=== PATIENT | female | born 1935 | race Caucasian/White ===

== ENCOUNTER 2019-12-16 12:31 | Emergency (ER) | payer OTHER ==
[~2019-12-16] VITALS: Ht 165.1 cm; Wt 55.3 kg
[~2019-12-16 12:31] MED LIST: AMARYL4 MG PO; ASPIRIN81 M2 PO; ATORVASTATIN CA40 MG PO; AVAPRO75 MG PO; BACTRIM DS TAB1 EAC1 PO; BETIMOL5 ML OPHTHALMIC; BREO ELLIPTA 11 EACH INH; COREG6.25 MG PO; CRANBERRY 12,61 EACH PO; ELIQUIS5 MG PO; ERY-TAB333 MG PO; ERYTHROMYCIN500 MG PO; ESTROVEN 155 M155 MG; FAMCICLOVIR250 MG PO; GUAIFENESIN1200 MG PO; IMDUR 60 MG TAB60 M1 PO; LIDODERM 5%1 PATC1 TRANSDERM; LUMIGAN2.5 M1 OP; LUMIGAN2.5 M1 OPHTHALMIC; MEGA MULTI FOR1 EACH; METFORMIN HCL1000 MG PO; NITROGLYCERIN0.4 MG SUBLING; OMEGA-31000 M1 PO; OMEPRAZOLE 20 M20 M1 PO; OXYCODONE HCL10 MG PO; PERCOCET PO; PLAVIX 75 MG TA75 M1 PO; PREDNISONE 20 M20 M1 PO; PRILOSEC 20 MG20 MG PO; Q-SORB CO Q-10200 MG; SINGULAIR 10 MG10 M1 PO; TYLENOL325 MG PO; VALIUM5 MG PO; VITAMIN D1000 UNI1 PO; WOMEN'S DAILY1 EAC1 PO
[2019-12-16 13:06] LABS: ABSOLUTE NEUTROPHILS 8.4 thou/uL (1.4-8.2); BASOPHILS 0.2 % (0.0-2.0); EOSINOPHILS 0.4 % (0.0-3.0); HEMATOCRIT 31.4 % (37.0-47.0); HEMOGLOBIN 10.2 gm/dL (12.0-15.0); LYMPHOCYTES 9.1 % (24.0-44.0); MCH 24.3 pg (26.0-34.0); MCHC 32.4 g/dL (28.0-37.0); MONOCYTES 10.2 % (1.0-8.0); PLATELET COUNT 387 thou/uL (150-400); POLYS 80.1 % (36.0-66.0); RBC 4.19 mil/uL (4.20-5.00); RDW 20.7 % (10.5-14.5); WBC 10.4 thou/uL (4.0-11.0)
[2019-12-16 13:10] LABS: ANION GAP 15 mmol/L (7-16); BUN 27 mg/dL (7-18); CALCIUM 8.7 mg/dL (8.5-10.1); CHLORIDE 101 mmol/L (98-107); CO2 16 mmol/L (21-32); CREATININE 1.1 mg/dL (0.6-1.0); GLUCOSE 148 mg/dL (74-106); POTASSIUM 4.5 mmol/L (3.5-5.1); SODIUM 132 mmol/L (136-145)
[2019-12-16 13:20] LABS: ALBUMIN 2.1 g/dL (3.4-5.0); SGOT 28 U/L (15-37); SGPT 23 U/L (30-65); TOTAL BILIRUBIN 0.8 mg/dL (0.2-1.0); TOTAL PROTEIN 6.2 g/dL (6.4-8.2); TROPONIN-I <0.06 ng/mL (<0.06)
[2019-12-16 13:28] LABS: URINE BILIRUBIN NEGATIVE (Negative); URINE BLOOD 1+ (Negative); URINE CLARITY CLOUDY; URINE COLOR YELLOW; URINE GLUCOSE-RANDOM* NEGATIVE (Negative); URINE KETONES NEGATIVE (Negative); URINE NITRITE-REFLEX NEGATIVE (Negative); URINE PROTEIN (DIPSTICK) TRACE (Negative); URINE UROBILINOGEN 0.2 E.U./dl (0.2-1.0)
[2019-12-16 13:29] LABS: URINE LEUKOCYTES-REFLEX 3+ (Negative)
[2019-12-16 13:38] LABS: CASTS None Seen /LPF (None Seen); CRYSTALS None Seen /LPF (None Seen); SQUAMOUS 0-3 Few /LPF (0-3); URINE WBC-REFLEX >25 Many /HPF (0-5)
[2019-12-16 13:39] LABS: URINE RBC 3-10 Few /HPF (0-2)
[2019-12-16] MEDS ORDERED: ACETAMINOPHEN325 MG PO (13:39)
[2019-12-16 13:40] LABS: YEAST-REFLEX Present (None Seen)
[2019-12-16] MEDS ORDERED: VITAMIN C500 M2 PO (13:40)
[2019-12-16] MEDS ORDERED: LIPITOR40 MG PO (13:41)
[2019-12-16] MEDS ORDERED: BISACODYL10 MG RECTAL (13:42)
[2019-12-16] MEDS ORDERED: NEXIUM 40 MG CA40 M1 PO (13:42)
[2019-12-16] MEDS ORDERED: ELIQUIS2.5 MG PO (13:43)
[2019-12-16] MEDS ORDERED: LEVAQUIN 500 M500 M3 PO (13:44)
[2019-12-16] MEDS ORDERED: TAMSULOSIN HCL0.4 MG PO (13:44)
[2019-12-16] MEDS ORDERED: OXYBUTYNIN 5 MG5 M2 PO (13:47)
[2019-12-16] MEDS ORDERED: SENNA8.6 MG PO (13:47)
[2019-12-16] MEDS ORDERED: VITAMIN D3125 MC1 PO (13:49)
[2019-12-16] MEDS ORDERED: ZINC30 M1 PO (13:49)
[2019-12-16] MEDS ORDERED: PRO-STAT AWC LI30 ML PO (13:50)
[2019-12-16] MEDS ORDERED: MILK OF MA400 MG/5 M PO (13:51)
[2019-12-16 14:07] LABS: ANISOCYTOSIS 2+; MICROCYTES 1+; POLYCHROMASIA OCCASIONAL
[2019-12-16 14:08] LABS: POIKILOCYTOSIS 1+; SCHISTOCYTES OCCASIONAL
[2019-12-16 17:10] VITALS: BP 101/57
--- NOTE | 2019-12-17 08:23 | EKG ---
[facility] [place] [address] ELECTROCARDIOGRAM REPORT Name: KEVEN FREEMAN Room #: DEP [facility]#: [id number] Admission: 12/16/19 Attend Phys: Discharge: 12/16/19 Date of : 35 Report #: [id number] THIS REPORT FOR: cc: Mele Lancaster MD, Christopher B. MD Lundgren,Daniel Morales MD [facility] ~ THIS REPORT FOR: //name// [facility] ED Test Date: 2019-12-16 Test Time: 12:40:01 Pat Name: KEVEN FREEMAN Department: Room: Gender: F Rock Mason: JAMES : 1935 Requested By: Kenrick Zarate Order Number: [id number] MD: Daniel Smith Measurements Intervals [place] Rate: 105 P: 0 AK: 124 QRS: -12 QRSD: 135 T: 147 QT: 368 QTc: 487 Interpretive Statements Sinus tachycardia Atrial premature complex Left bundle branch block No previous ECG available for comparison Electronically Signed On 12-17-2019 8:23:33 CDT by Daniel Smith [email or web address] <ELECTRONICALLY SIGNED> By: Daniel Smith MD, [facility] 12/17/19 0823 1240 1240 Daniel Smith MD, [facility] /EPI
== END 2019-12-16 17:10 | disposition short-term general hospital (02) ==
LOC: ER 12:31
PROVIDERS: Physician Assistant
DX: A41.9 Sepsis, unspecified organism (principal); N12 Tubulo-interstitial nephritis, not specified as acute or chronic; N20.1 Calculus of ureter; I10 Essential (primary) hypertension; E11.9 Type 2 diabetes mellitus without complications; Z20.828 Contact with and (suspected) exposure to other viral communicable diseases; Z90.710 Acquired absence of both cervix and uterus; Z79.82 Long term (current) use of aspirin; Z79.899 Other long term (current) drug therapy; Z88.0 Allergy status to penicillin; Z88.1 Allergy status to other antibiotic agents; Z88.2 Allergy status to sulfonamides; Z88.8 Allergy status to other drugs, medicaments and biological substances